=== PATIENT | female | born 1985 | race Asian ===

== ENCOUNTER 2018-12-28 11:55 | Inpatient (IN) | payer OTHER ==
--- NOTE | 2018-12-28 12:41 | HP ---
Past Medical History - Admission Chief Complaint: Here for scheduled repeat c section History of Present Illness: Here for scheduled repeat c section. complicated by obesity. Recent UTI diagnosis, on PO antibiotics. H/o c section X 1, declined TOLAC. History Source: Patient, Medical Record Limitations to Obtaining History: No Limitations - Past Medical History Cardiovascular: No: HTN Pulmonary: No: COPD Gastrointestinal: No: GERD ...Para: 1 Heme/Onc: No: Anemia Psych: Yes: Depression Endocrine: Yes: Other (Gestational Diabetes) - Past Surgical History Past Surgical History: Yes: Hx Myomectomy: No Hx Transabdominal Cerclage: No - Smoking History Smoking history: Never smoked Have you smoked in the past 12 months: No - Alcohol/Substance Use Hx Alcohol Use: No History of Substance Use: reports: None - Social History Usual Living Arrangement: Yes: With Spouse ADL: Independent History of Recent Travel: No Home Medications - Allergies Allergies/Adverse Reactions: Allergies Allergy/AdvReac Type Severity Reaction Status Date / Time No Known Allergies Allergy Verified 04/15/16 01:16 - Home Medications Home Medications: Ambulatory Orders Vit/Iron Fum/Folic AC [ Tablet] 1 tab PO DAILY 01/27/16 Ferrous Sulfate [Feosol] 325 mg PO BIDWM #60 ud 04/18/16 Ibuprofen [Motrin -] 600 mg PO Q4H PRN #30 tablet 04/18/16 Vitamins (Sjr) - 1 tab PO DAILY tablet 04/18/16 Vitamins (Sjr) - 1 tab PO DAILY tablet 04/18/16 Physical Exam - Maternity Constitutional: Yes: Well Nourished, No Distress, Calm Eyes: Yes: EOM Intact HENT: Yes: Normocephalic Neck: Yes: Supple Cardiovascular: Yes: Regular Rate and Rhythm Lungs: Clear to auscultation Breast(s): Yes: WNL - Abdominal Exam/OB Fundal Height: 40 Number of Fetuses: Single Presentation: Vertex Contractions: No Category: I Accelerations: Uniform Decelerations: None - Vaginal Exam/OB Amniotic Membrane Status: Intact - Physical Exam Psychiatric: Yes: Alert, Oriented Hemorrhage Risk Assessment - Risk Factors Medium Risk Factors: Yes: Prior , uterine surgery,or multiple laparotomies High Risk Factors: Yes: None Risk Score: 1 Risk Level: Medium Risk Problem List - Problems (1) History of delivery Code(s): Z98.891 - HISTORY OF UTERINE SCAR FROM PREVIOUS SURGERY (2) 39 weeks gestation of Code(s): Z3A.39 - 39 WEEKS GESTATION OF (3) Gestational diabetes mellitus (GDM) affecting Code(s): O24.419 - GESTATIONAL DIABETES MELLITUS IN , UNSP CONTROL Assessment/Plan plan for repeat c section informed consent obtained soemrs placed NPO anesthesia aware continue antibiotics for previously diagnosed UTI A1GDM, preop BG WNL
[2018-12-28 13:13] VITALS: BMI 38.9
[2018-12-28] MEDS ORDERED: METHYLERGONOVINE MALEATE 0.2 MG/1 ML AMP IM PRN (14:01)
[2018-12-28] MEDS ORDERED: morphine SULFATE/PF 0.5 MG/ML (2cc Syringe - QUVA) ONE (14:05)
[2018-12-28] MEDS ORDERED: OXYTOCIN 20 UNITS in 0.9% NS 40 UNIT/2,000 ML INFUS.BAG IV ONE (14:11)
[2018-12-28] MEDS ORDERED: ePHEDrine SULFATE 50 MG/1 ML AMPULE ONE (14:33)
[2018-12-28] MEDS: OXYTOCIN 20 UNITS in 0.9% NS 20 UNIT/1,000 ML INFUS.BAG IV SCH ×2 (15:35→20:47)
[2018-12-28] MEDS ORDERED: morphine SULFATE/PF 0.5 MG/ML (2cc Syringe - QUVA) EP ONE (15:42)
[2018-12-28] MEDS ORDERED: ONDANSETRON 4 MG/2 ML VIAL IVPUSH PRN (15:42)
[2018-12-28] MEDS: IBUPROFEN 800 MG/8 ML IJ IVPB PRN (17:31)
[2018-12-28] MEDS: NITROFURANTOIN MACROCRYSTAL 50 MG CAPSULE (FP) PO SCH (18:53)
--- NOTE | 2018-12-28 19:51 | OP ---
Operative Note - Note: Operative Date: 12/28/18 Pre-Operative Diagnosis: SIUP at 39 weeks, A1GDM, prior c section, obesity Operation: repeat LTCS Delivery - vacuum assisted Findings: adhesions from omentum to anterior uterus Post-Operative Diagnosis: Same as Pre-op Surgeon: Phylicia Chan [employer] Construction Director: Kvng Quinonez Anesthesiologist/HISTOLOGIST: Arianna Tang MD Anesthesia: Spinal Specimens Removed: placenta Estimated Blood Loss (mls): 700 Operative Report Dictated: Yes
--- NOTE | 2018-12-28 23:32 | OP ---
DATE OF OPERATION: 12/28/2018 PREOPERATIVE DIAGNOSES: Single intrauterine at 39 weeks gestation, gestational diabetes, obesity, previous section, declined trial of labor after section. SURGEON: Phylicia Chan DO WASTEWATER TREATMENT OPERATOR: AYE Grimes PROCEDURE: Repeat low transverse section. ANESTHESIA: Spinal by DARA Castro ESTIMATED BLOOD LOSS: 700 mL. SPECIMENS REMOVED: Placenta. COMPLICATIONS: None. FINDINGS: Omental adhesions to the anterior uterine surface. DISPOSITION: Stable to PACU. COUNTS: Sponge, needle, and instrument count was reported to be correct. BRIEF HISTORY AND DESCRIPTION OF PROCEDURE: Patient is a 33-year-old female with a history of a prior delivery at 39 weeks gestation, who had been seen in the office, diagnosed with gestational diabetes, and had declined a trial of labor after . The patient was admitted to [facility] at 39 weeks gestation on December 28, 2018, where consents for the procedure were signed. Patient was then taken back to the operating room, given spinal anesthesia, and placed in the dorsal supine position. A Santos catheter had been placed under sterile conditions. She was prepped and draped in the usual sterile fashion, and a hard timeout was performed. A Pfannenstiel skin incision was created in the skin with a scalpel and carried to the underlying layer of rectus fascia sharply. The fascia was incised on either side of the midline sharply, and the fascial incision was carried in a superolateral direction sharply. The fascia was tented upward and dissected off the underlying layer of rectus muscle sharply, and musculature was identified in the midline, laterally, and the peritoneum was entered bluntly and then dissected carefully to allow for adequate room for delivery. Adhesions from the omentum to the anterior uterine surface were appreciated, were doubly clamped with a Airam, ligated, and free tied at this time. After the anterior uterine surface was cleared, a low transverse incision was created in the lower uterine segment, and the incision was carried in a superolateral direction bluntly. The infant was delivered from the direct occiput posterior position with aid of vacuum device. Bilateral shoulders and the remainder of the delivered with ease. The cord was clamped twice and cut in between. The was taken over to the warmer to be assessed by the neonatology staff, where scores of 8 and 9 were assigned. The uterus was exteriorized from the abdomen, cleared of placenta, amniotic membrane and debris with manual extraction of placenta and cleared with a dry lap sponge. The hysterotomy was reapproximated in a double-layer closure using 1 Vicryl in a running locked fashion, the second layer using 0 Biosyn in running fashion. Excellent hemostasis was achieved. Bilateral tubes and ovaries were noted to be normal. The uterus was placed back in the abdomen. Bilateral gutters were inspected and cleared of all blood clot and debris. The hysterotomy was again re-examined and noted to be hemostatic. The peritoneum was reapproximated using 0 chromic in a running fashion. The musculature was reapproximated using a single interrupted suture with a 2-0 chromic. The fascia was reapproximated using 1 Vicryl in a running fashion. Subcutaneous tissue was irrigated and reapproximated using 1 Vicryl in a running fashion. The skin was reapproximated in subcuticular fashion using 3-0 Vicryl, and Steri-Strips were applied. Patient tolerated the procedure well, is recovering in stable condition in the PACU after the procedure. PHYLICIA CHAN DO /[id number]
[2018-12-29] MEDS: NITROFURANTOIN MACROCRYSTAL 50 MG CAPSULE (FP) PO SCH ×4 (00:59→17:45)
[2018-12-29] MEDS: IBUPROFEN 800 MG/8 ML IJ IVPB PRN (03:47)
[2018-12-29] MEDS: OXYTOCIN 20 UNITS in 0.9% NS 20 UNIT/1,000 ML INFUS.BAG IV SCH (05:41)
[2018-12-29 08:25] LABS: BASO % 0.1 % (0-2.0); HEMATOCRIT 30.6 % (32.4-45.2); HEMOGLOBIN 10.3 GM/dL (10.7-15.3); LYMPH % 15.4 % (8-40); MCHC 33.7 g/dl (32.0-36.0); MEAN CELL VOLUME 86.1 fl (80-96); MEAN PLT VOLUME 9.4 fl (7.5-11.1); MONO % 4.8 % (3.8-10.2); NEUT % 78.7 % (42.8-82.8); PLATELET COUNT 142 K/MM3 (134-434); RBC 3.55 M/mm3 (3.60-5.2); RDW 15.7 % (11.6-15.6)
[2018-12-29] MEDS: PRENATAL VITAMINS W/ FOLIC ACID TABLET (FP) PO SCH (09:13)
[2018-12-29] MEDS: oxyCODONE HCL 5 MG TABLET PO PRN ×3 (11:45→20:42)
[2018-12-29] MEDS: SIMETHICONE 80 MG TAB.CHEW (FP) PO PRN ×3 (11:45→20:42)
[2018-12-29] MEDS: ACETAMINOPHEN 325 MG TABLET (FP) PO PRN ×3 (11:45→20:44)
--- NOTE | 2018-12-29 13:51 | PN ---
Progress Note (short form) - Note Progress Note: POD 1 s/p section under spinal anesthesia with intrathecal duramorph. Patient resting comfortably, denies n/v/puritus/pain. Ambulating. All questions answered.
[2018-12-29] MEDS ORDERED: BISACODYL 10 MG SUPP.RECT RC PRN (14:01)
--- NOTE | 2018-12-29 22:25 | PN ---
Post Note - Post Date of Delivery: 12/28/18 Post Day: 1 Vital Signs: Vital Signs - 24 hr 12/28/18 12/29/18 12/29/18 23:00 00:00 01:00 Temperature Pulse Rate Respiratory 18 18 18 Rate Blood Pressure 12/29/18 12/29/18 12/29/18 01:30 02:00 03:00 Temperature 98.0 F Pulse Rate 95 H Respiratory 18 18 18 Rate Blood Pressure 116/72 12/29/18 12/29/18 12/29/18 04:00 05:00 06:00 Temperature 98.1 F Pulse Rate 79 Respiratory 18 18 18 Rate Blood Pressure 128/57 L 12/29/18 12/29/18 12/29/18 07:00 09:00 09:09 Temperature 97.9 F Pulse Rate 101 H Respiratory 18 20 20 Rate Blood Pressure 111/53 L 12/29/18 12/29/18 12/29/18 11:00 13:00 14:00 Temperature 97.7 F Pulse Rate 93 H Respiratory 20 20 20 Rate Blood Pressure 114/62 12/29/18 21:40 Temperature 98.1 F Pulse Rate 96 H Respiratory 20 Rate Blood Pressure 124/74 Labs: Laboratory Results - last 24 hr 12/29/18 07:40 WBC 10.0 RBC 3.55 L Hgb 10.3 L Hct 30.6 L D MCV 86.1 MCH 29.0 MCHC 33.7 RDW 15.7 H Plt Count 142 MPV 9.4 Absolute Neuts (auto) 7.9 Neutrophils % 78.7 Lymphocytes % 15.4 D Monocytes % 4.8 Eosinophils % 1.0 Basophils % 0.1 Nucleated RBC % 0 - Subjective Subjective: No Complaints - Objective Afebrile: Yes Breast: Not engorged Abdomen: Soft, Non-tender Uterus: Fundus firm, Non-tender Extremities: Non-tender - Assessment/Plan (1) History of delivery Assessment: Other (POD1) Plan: Routine Care
[2018-12-30] MEDS: NITROFURANTOIN MACROCRYSTAL 50 MG CAPSULE (FP) PO SCH ×5 (00:44→23:36)
[2018-12-30] MEDS: oxyCODONE HCL 5 MG TABLET PO PRN ×4 (00:47→23:40)
[2018-12-30] MEDS: ACETAMINOPHEN 325 MG TABLET (FP) PO PRN ×3 (00:47→23:40)
[2018-12-30] MEDS: SIMETHICONE 80 MG TAB.CHEW (FP) PO PRN ×5 (00:47→23:40)
[2018-12-30] MEDS: IBUPROFEN 600 MG TABLET (FP) PO PRN ×3 (08:17→23:41)
[2018-12-30] MEDS ORDERED: DIPHTH,PERTUSS(ACELL),TET 0.5 ML DISP.SYRIN IM ONE (10:00)
[2018-12-30] MEDS: ENOXAPARIN NA (PORCINE) 40 MG/0.4 ML DISP.SYRIN SQ SCH (11:00)
[2018-12-30] MEDS: PRENATAL VITAMINS W/ FOLIC ACID TABLET (FP) PO SCH (11:00)
--- NOTE | 2018-12-30 13:35 | PN ---
Post Note - Post Date of Delivery: 12/28/18 Post Day: 2 Vital Signs: Vital Signs - 24 hr 12/29/18 12/29/18 12/30/18 14:00 21:40 10:00 Temperature 97.7 F 98.1 F 97.3 F L Pulse Rate 93 H 96 H 86 Respiratory 20 20 20 Rate Blood Pressure 114/62 124/74 124/70 - Subjective Subjective: No Complaints - Objective Afebrile: Yes Breast: Not engorged Abdomen: Soft, Non-tender Uterus: Fundus firm Vagina: Scant lochia Extremities: Non-tender - Assessment/Plan (1) History of delivery Assessment: Other (CS pod 2) Plan: Routine Care
--- NOTE | 2018-12-30 18:18 | PATH ---
Surgical Pathology Report Patient Name: WILMAR DANIELS [facility]. Rec. #: [id number] /Age/Gender: 1985 (Age: 33) / F Account: [id number] Location: [facility] [employer]EM[employer] Taken: 12/28/2018 Received: 12/29/2018 Reported: 12/30/2018 Physicians: Phylicia Chan M.D. Specimen(s) Received PLACENTA Clinical History , 39 weeks, repeat Final Diagnosis PLACENTA, SECTION: 666 G THIRD TRIMESTER PLACENTA WITH TRIVASCULAR UMBILICAL CORD AND UNREMARKABLE PLACENTAL MEMBRANES. Electronically Signed Valeria Vallejo M.D. Gross Description The specimen is received fresh labeled placenta and is a 666 gram, 21 x 13 x 1.5 cm. placenta with attached membranes and umbilical cord. The attached membranes are clear and translucent and insert marginally. The umbilical cord measures 60 cm. in length and averages 1.5 cm. in diameter. The cord inserts eccentrically, 3 cm. to the nearest margin. No true knots or strictures are identified. Cut surface of the umbilical cord reveals 3 vessels. The surface is wilson-blue with minimal fibrin deposition and appropriate caliber vessels. The maternal surface is red-brown with focal defects. Sectioning reveals red-brown, spongy parenchyma. No lesions are identified. [employer] sections are submitted in three cassettes as follows: 1- membrane rolls and umbilical cord; 2-3- full thickness sections of placenta. MLSZ/12/29/2018 sanml/12/29/2018
[2018-12-30] MEDS: OXYTOCIN 20 UNITS in 0.9% NS 20 UNIT/1,000 ML INFUS.BAG IV SCH (19:40)
[2018-12-31] MEDS: NITROFURANTOIN MACROCRYSTAL 50 MG CAPSULE (FP) PO SCH ×2 (06:00→11:39)
[2018-12-31 08:30] LABS: BASO % 0.3 % (0-2.0); EOS % 2.3 % (0-4.5); HEMATOCRIT 28.5 % (32.4-45.2); HEMOGLOBIN 9.7 GM/dL (10.7-15.3); MCH 29.3 pg (25.7-33.7); MCHC 33.8 g/dl (32.0-36.0); MEAN CELL VOLUME 86.7 fl (80-96); MEAN PLT VOLUME 9.1 fl (7.5-11.1); MONO % 5.3 % (3.8-10.2); NEUT % 63.1 % (42.8-82.8); PLATELET COUNT 156 K/MM3 (134-434); RBC 3.29 M/mm3 (3.60-5.2); RDW 15.9 % (11.6-15.6)
--- NOTE | 2018-12-31 09:32 | DS ---
Physical Exam-[facility] TECH Vital Signs: Vital Signs Temperature 98.0 F 12/30/18 22:00 Pulse Rate 92 H 12/30/18 22:00 Respiratory Rate 18 12/30/18 22:00 Blood Pressure 128/78 12/30/18 22:00 O2 Sat by Pulse Oximetry (%) 100 12/28/18 16:50 Labs: CBC, BMP 12/31/18 08:08 Delivery - Delivery Type of Anesthesia: Spinal EBL (cc): 700 Delivery, Single - Stages of Labor Date of Delivery: 12/28/18 Time of Delivery: 14:47 Time Placenta Delivered: 14:48 - Condition of Infant Cashier And Waiter/Waitress/Insurance Risk Surveyor Present: Yes Name: Jose David Romero Infant Gender: Female Weight: 7 lb 13 oz Position: OP Total Hours ROM (Hrs/Mins): 0Hrs/5Mins - 1 Minute Total Score: 8 5 Minutes Total Score: 9 - Feeding Plan Initial Plan: Exclusive throughout hospitalization Discharge Summary Reason For Visit: Current Active Problems Gestational diabetes mellitus (GDM) affecting (Acute) History of delivery (Acute) Hospital Course: Pt admitted on 12/28/18 for scheduled repeat c section. Pt had uncomplicated surgery and post recovery. Pt was discharged home in stable condition on post op day 3. Condition: Good - Instructions Diet, Activity, Other Instructions: Physical activity Resume your normal everyday activity as tolerated no heavy lifting or strenuous exercise until seen by your surgeon. You may walk unlimited amounts and climb stairs. You may resume driving the car when you feel safe and comfortable behind the wheel. No sexual activity as instructed. Wound care If there are tapes on the skin leave them in place. They will peel off in the next 7 to 10 days. Do Not Peel them off. You may shower the day after surgery. If there are tapes present on the skin, you may shower over them. Diet There are no dietary restrictions. Eat healthy, high-fiber foods. Drink 6 to 8 glasses of liquid each day. This will assist in keeping your bowels regular. Pain management You may take Tylenol or Ibuprofen (for example, Motrin, Advil etc.) as needed for pain. Call MD for any of the following: Severe pain not relieved by medication Fever of 101 or higher Excessive bleeding or drainage on dressing Inability to urinate Follow up in the office in 7 days for an incision check Disposition: HOME - Home Medications Comprehensive Discharge Medication List: Ambulatory Orders Vitamins (Sjr) - 1 tab PO DAILY tablet 04/18/16 Nitrofurantoin Monohyd/M-Cryst [Macrobid -] 1 cap PO BID 12/28/18 Ibuprofen [Motrin -] 600 mg PO QID PRN #28 tablet 12/31/18
[2018-12-31] MEDS: IBUPROFEN 600 MG TABLET (FP) PO PRN (10:54)
[2018-12-31] MEDS: PRENATAL VITAMINS W/ FOLIC ACID TABLET (FP) PO SCH (10:54)
[2018-12-31] MEDS: SIMETHICONE 80 MG TAB.CHEW (FP) PO PRN (10:54)
[2018-12-31] MEDS: ACETAMINOPHEN 325 MG TABLET (FP) PO PRN (10:54)
[2018-12-31] MEDS: ENOXAPARIN NA (PORCINE) 40 MG/0.4 ML DISP.SYRIN SQ SCH (10:55)
[2018-12-31 12:02] VITALS: BP 129/79; PULSE 79; TEMP 97.7
== END 2018-12-31 13:15 | disposition home or self-care (01) | DRG 540 ==
LOC: JLDR 11:55 → J3W 17:23
PROVIDERS: ADMIT Obstetrics & Gynecology; ATTEND Obstetrics & Gynecology
PROC: 10D00Z1 Extraction of Products of Conception, Low, Open Approach (ICD-10-PCS; principal; 2018-12-28)
DX: O24.429 Gestational diabetes mellitus in childbirth, unspecified control (principal); O99.214 Obesity complicating childbirth; E66.8 Other obesity; O66.5 Attempted application of vacuum extractor and forceps; Z3A.39 39 weeks gestation of pregnancy; Z37.0 Single live birth
CPT/HCPCS: 36415; 85025; 88307-TC; 90715

== ENCOUNTER 2023-07-04 09:49 | Day surgery (SDC) | payer SELFPAY ==
[2023-06-26 13:01] VITALS: BMI 33.8
[2023-07-04] MEDS ORDERED: GENTAMICIN SO4 80 MG/2 ML VIAL ONE (12:09)
[2023-07-04] MEDS ORDERED: BUPIVACAINE HCL/PF 0.25% (2.5MG/ML) 10 ML VIAL ONE (12:09)
[2023-07-04] MEDS ORDERED: LIDOCAINE 1%/EPI 1:100000 (20 ML MULTI DOSE VIAL) ONE (12:09)
[2023-07-04] MEDS ORDERED: EPINEPHrine/PF 1 MG/1 ML (1:1,000) AMPULE ONE ×2 (12:09→16:47)
[2023-07-04] MEDS ORDERED: LIDOCAINE HCL 1%, 10 MG/ML (20ML VIAL) ONE (12:09)
[2023-07-04] MEDS ORDERED: PROPOFOL 120 ML ONE (13:00)
[2023-07-04] MEDS ORDERED: MIDAZOLAM HCL 2 MG/2 ML SINGLE DOSE VIAL ONE (13:00)
[2023-07-04] MEDS ORDERED: ROCURONIUM BROMIDE 50 MG/5 ML SYRINGE ONE ×3 (13:00→16:40)
[2023-07-04] MEDS ORDERED: FENTANYL CITRATE/PF 50 MCG/ML VIAL ONE ×3 (13:00→17:51)
[2023-07-04] MEDS ORDERED: SUCCINYLCHOLINE CHLORIDE 200 MG/10 ML SYRINGE ONE (13:01)
[2023-07-04] MEDS ORDERED: ONDANSETRON 4 MG/2 ML VIAL ONE ×3 (13:01→20:16)
[2023-07-04] MEDS ORDERED: BUPIVACAINE LIPOSOME/PF (EXPAREL) 266 MG/20 ML VIAL ONE (13:27)
[2023-07-04] MEDS: ceFAZolin SODIUM 1 GM VIAL IVPB ONE ×2 (13:40→17:32)
[2023-07-04] MEDS ORDERED: HYDROmorphone HCl 2 MG/ML VIAL ONE (13:40)
[2023-07-04] MEDS: BUPIVACAINE HCL/PF 2.5 MG/ML - 30 ML VIAL IJ ONE (14:16)
[2023-07-04] MEDS ORDERED: DEXAMETHASONE SOD PHOSPHATE 4 MG/1 ML VIAL ONE (14:32)
[2023-07-04] MEDS ORDERED: KETOROLAC TROMETHAMINE 30 MG/1 ML VIAL ONE (14:32)
[2023-07-04] MEDS ORDERED: SUGAMMADEX SODIUM 200 MG/2 ML VIAL ONE (14:58)
[2023-07-04] MEDS ORDERED: PROPOFOL 20 ML ONE (15:15)
[2023-07-04] MEDS: BUPIVACAINE LIPOSOME/PF (EXPAREL) 266 MG/20 ML VIAL NR ONE (16:00)
[2023-07-04] MEDS ORDERED: ACETAMINOPHEN INJECTION 100 ML IVPB ONE (16:55)
[2023-07-04] MEDS ORDERED: ceFAZolin SODIUM 1 GM VIAL ONE ×2 (17:32→20:46)
[2023-07-04] MEDS: NITROGLYCERIN 2% OINTMENT - 1GM PACKET TD ONE (18:20)
[2023-07-04] MEDS ORDERED: PROMETHAZINE HCL 25 MG/1 ML VIAL IVPB PRN (18:45)
[2023-07-04] MEDS ORDERED: oxyCODONE HCL 5 MG TABLET PO PRN ×2 (18:45)
[2023-07-04] MEDS ORDERED: LACTATED RINGERS SOLUTION 1,000 ML IV SCH (18:45)
[2023-07-04] MEDS: LACTATED RINGERS SOLUTION 1,000 ML IV SCH (19:45)
[2023-07-04] MEDS: ONDANSETRON 4 MG/2 ML VIAL IVPUSH PRN (20:20)
[2023-07-04] MEDS: CEFAZOLIN 1 GM in DEXTROSE 5%-WATER - 50 ML IVPB SCH (20:52)
[2023-07-04] MEDS: HEPARIN NA (PORCINE) 5,000 UNITS/ML 1ML VIAL SQ SCH (22:51)
[2023-07-05] MEDS: oxyCODONE HCL 5 MG TABLET PO PRN (00:38)
[2023-07-05] MEDS: ONDANSETRON 4 MG/2 ML VIAL IVPB PRN (03:59)
[2023-07-05 05:34] VITALS: RESP 18
[2023-07-05] MEDS: ACETAMINOPHEN 1000 MG/100 ML BAG IVPB PRN (08:36)
[2023-07-05 08:50] VITALS: BP 117/76; PULSE 78; TEMP 97.9
== END 2023-07-05 14:00 | disposition home or self-care (01) ==
LOC: JASUSAT 09:49 → J6S 21:35 → JASUSAT 07-05 14:00
PROVIDERS: ATTEND Plastic Surgery
PROC: 0W0F0ZZ Alteration of Abdominal Wall, Open Approach (ICD-10-PCS; principal; 2023-07-04 12:00)
PROC: 0J083ZZ Alteration of Abdomen Subcutaneous Tissue and Fascia, Percutaneous Approach (ICD-10-PCS; 2023-07-04 12:00)
DX: Z41.1 Encounter for cosmetic surgery (principal)
CPT/HCPCS: 94760; J0131; J1644